=== PATIENT | female | born 1970 | race Caucasian/White ===

== ENCOUNTER 2016-05-22 15:08 | Emergency (ER) | payer MEDICAID ==
[2016-05-22 15:40] VITALS: BP 122/81; PULSE 88; RESP 16; TEMP 97.7; O2SAT 97
[2016-05-22] MEDS ORDERED: IBUPROFEN 200 MG TAB PO ONE (15:40)
--- NOTE | 2016-05-22 15:47 | UCPHY ---
H & P Time Seen by Provider: 05/22/16 15:22 Patient Type: New HPI/ROS: This patient injured her right 5th finger deflecting a branch fell from a tree while she is working in the [place] her parents yesterday. It also struck the left upper arm. She however only complains of pain at the right 5th finger which is moderate associated with circumferential swelling and pain worsens with movement. She states that extends slightly to the 5th metacarpal of the same hand. She has not had any pain medication or anti-inflammatory for her symptoms today. ROS: No numbness or tingling. She denies any head injury from the incident. No other injuries. 5 point ROS is otherwise negative. Smoking Status: Unknown if ever smoked Physical Exam: Physical Exam Vital signs are normal. General: No acute distress HEENT: Atraumatic. Eyes: Pupils equal and react to light. Extraocular motions are intact. Lungs: No respiratory distress. Cardiac: Brisk capillary refill is intact throughout. Pulses are 2+ and symmetric in the affected extremity. Skin: No rash or pallor. Extremities: Atraumatic normal except for right hand: There is circumferential swelling of the 5th finger with limited range of motion in flexion and extension due to pain. No significant malrotation. Mild tenderness to the distal 5th metacarpal on the same hand. Hand exam is otherwise normal. Left upper extremity notable for contusion to the mid humeral region laterally. No bony tenderness. She retains full range of motion of the humerus without pain Neuro: Alert and oriented x3 with no sensorimotor deficits. Initial differential diagnosis: 5th finger fracture versus sprain versus contusion, arm contusion Constitutional: Initial Vital Signs Temperature (C) 36.5 C 05/22/16 15:20 Heart Rate 88 05/22/16 15:20 Respiratory Rate 16 05/22/16 15:20 Blood Pressure 122/81 H 05/22/16 15:20 O2 Sat (%) 97 05/22/16 15:20 O2 Delivery Mode Room Air Allergies/Adverse Reactions: erythromycin base Allergy (Verified 05/22/16 15:35) metronidazole [From Flagyl] Allergy (Verified 05/22/16 15:35) Sulfa (Sulfonamide Antibiotics) Allergy (Verified 05/22/16 15:35) Home Medications: Medication Instructions Recorded NK [No Known Home Meds] 05/22/16 MDM/Departure - MDM Diagnostics: Imaging Impressions Finger X-Ray 05/22/16 15:34 Impression: No bone or joint abnormality identified. Finger x-ray: Negative for fracture by my interpretation Medications Given: Discontinued Medications Ibuprofen (Motrin) 600 mg PO EDNOW ONE Stop: 05/22/16 15:41 Last Admin: 05/22/16 16:00 Dose: 600 mg ED Course/Re-evaluation: Patient is treated with ibuprofen with partial relief. The patient requested in Alumafoam splint rather than lonnie taping initially. Provided the splint but encouraged her to changes out for lonnie taping within a few days of the finger does get too stiff. Findings are consistent with 5th finger sprain and left arm contusion. I counseled patient regarding this. - Depart Disposition: Home, Routine, Self-Care Condition: Good Instructions: Contusion in Adults (ED), Finger Sprain (ED) Additional Instructions: Diagnosis: 1. Finger sprain 2. Arm contusion Plan: Ice 20 minutes at a time to 3 times a day to sore areas Ibuprofen and Tylenol in addition Lonnie-taped 4th 5th finger until symptoms improve-likely over the next 5-10 days. Referrals: NONE *PRIMARY CARE P,. [Primary Care Provider] - As per Instructions - PQRS PQRS Measurement: NA
== END 2016-05-22 16:11 | disposition home or self-care (01) ==
LOC: CED 15:08
DX: S63.616A Unspecified sprain of right little finger, initial encounter (principal); S40.022A Contusion of left upper arm, initial encounter; W20.8XXA Other cause of strike by thrown, projected or falling object, initial encounter; Y93.H2 Activity, gardening and landscaping
CPT/HCPCS: 73140-PO; 99203-PO; G0463-PO

== ENCOUNTER 2017-04-13 16:38 | Emergency (ER) | payer MEDICAID ==
--- NOTE | 2017-04-13 16:54 | EDPHY ---
H & P Stated Complaint: just got out of longterm/cough/rx amoxicillin in longterm/also r ankle and l foot p Time Seen by Provider: 04/13/17 16:53 HPI/ROS: HPI: This is a 46-year-old female who presents with Chief Complaint: just got out of longterm/cough/rx amoxicillin in longterm/also r ankle and l foot p Location: Chest Quality: Cough Duration: 2 weeks Signs and Symptoms: no Shortness of breath, no chest pain, + wheezing, no palpitations, + subjective fevers, No bleeding, no radiation, no numbness, no weakness, no tingling, no incontinence, no decreased range of motion, + swelling , + pain Timing: Daily Severity: Moderate Context: Patient has a history of asthma diagnosed in childhood, released from longterm yesterday, presents with several complaints. She complains nonproductive cough and chest congestion for the last 2 weeks. She took 6 days of amoxicillin all last dose yesterday but was not given prescription by longterm to continue when she was discharged. She reports that she has an albuterol inhaler at home that she has been using 2-3 times per day. She denies any chest pain/shortness of breath. She reports subjective low-grade fevers and chills. She also reports that 1 week ago she jumped off a 3 ft ledge and twisted her right lateral ankle. Since that time has remained swollen with pain after weight-bearing for long periods of time. She also complains of the top of her right foot causing her pain that is described as mild and nonradiating in nature and worsened with weight-bearing. She is requesting a note while at the intermediate house to prohibit her from having to walk long periods of time until fully healed. She denies any paresthesias/erythema/ weakness/skin color changes. Nonsmoker. Modifying Factors: See above Comment: ROS: see HPI Constitutional: No fever, no chills, no weight loss Eyes: No blurred vision Respiratory: No shortness of breath, no cough Cardiovascular: No chest pain Gastrointestinal: No nausea, no vomiting no diarrhea Genitourinary: No dysuria Extremities: No myalgias Neurologic: No weakness, no numbness Skin: No rashes Hematologic: No bruising, no bleeding MEDICAL/SURGICAL/SOCIAL HISTORY: Med hx-asthma, endometriosis Surg hx-laparoscopic Social history: Unemployed. CONSTITUTIONAL: Well-appearing adult white female, awake and alert, no obvious distress HEENT: Atraumatic and normocephalic, PERRL, EOMI. Tympanic membranes clear. Oropharynx clear, no exudate and moist pink mucosa. Airway patent. No lymphadenopathy. No meningismus. Cardiovascular: Normal S1/S2, regular rate, regular rhythm, without murmur rub or gallop. PULMONARY/CHEST: Symmetrical and nontender. Coarseness bilaterally with bilateral faint expiratory wheezing. Good air movement. No accessory muscle usage. ABDOMEN: Soft, nondistended, nontender, no rebound, no guarding, no peritoneal signs, no masses or organomegaly. No CVAT. EXTREMITIES: 2/2 pulses, strength 5/5, left Ankle: Plantar flexion to 50, dorsiflexion to 20. Foot inversion to 35 degree. Mild swelling noted over the lateral malleolus. mild tenderness/swelling Anterior talofibular ligament. No tenderness/swelling Calcaneofibular ligament, no tenderness/swelling posterior talofibular ligament, no tenderness/swelling posterior inferior tibiofibular ligament. Achilles tendon intact. no deformities, no clubbing, no cyanosis or edema. NEUROLOGICAL: no focal neuro deficits. Left foot mild tenderness over the medic tarsals but no obvious deformity/swelling/ecchymosis. GCS 15. SKIN: Warm and dry, no erythema. no rash. Good capillary refill. Source: Patient Exam Limitations: No limitations - Personal History LMP (Females 10-55): Post Menopausal Current Tetanus/Diphtheria Vaccine: Yes - Medical/Surgical History Hx Asthma: Yes Hx Chronic Respiratory Disease: No Hx Diabetes: No Hx Cardiac Disease: No Hx Renal Disease: No Hx Cirrhosis: No Hx Alcoholism: No Hx HIV/AIDS: No Hx Splenectomy or Spleen Trauma: No Other PMH: Med hx-. Surg-laproscopic - Social History Smoking Status: Never smoked Constitutional: Initial Vital Signs Temperature (C) 36.9 C 04/13/17 16:42 Heart Rate 86 04/13/17 16:42 Respiratory Rate 18 04/13/17 16:42 Blood Pressure 112/93 H 04/13/17 16:42 O2 Sat (%) 97 04/13/17 16:42 O2 Delivery Mode Room Air Allergies/Adverse Reactions: erythromycin base Allergy (Verified 05/22/16 15:35) metronidazole [From Flagyl] Allergy (Verified 05/22/16 15:35) Sulfa (Sulfonamide Antibiotics) Allergy (Verified 05/22/16 15:35) Home Medications: Medication Instructions Recorded AMOXICILLIN 04/13/17 Benzonatate [Tessalon Pearles (RX)] 100 mg PO Q4 PRN #15 cap 04/13/17 Doxycycline Hyclate 100 mg PO BID #14 tab 04/13/17 Medical Decision Making Procedures: Procedure: Splint placement. An ART wrap and right ankle stirrup splint was applied by the Emergency Room traffic control technician. After application of the splint I returned and re-examined the patient. The splint was adequately immobilizing the joint and distal to the splint the patient's circulation and sensation was intact. ED Course/Re-evaluation: Chest x-ray, DuoNeb therapy, right ankle x-ray and left foot x-ray ordered. Vital signs reviewed and afebrile and no systemic signs. O2 sats 97% on room air. No signs of neurovascular compromise/tenting of skin/compartment syndrome/ extremities and joints examined above and below area of concern and are neurovascularly intact. Ankle x-ray my read shows no acute fracture; given Art wrap and placed in ankle stirrup splint. Left foot x-ray my read shows no acute fracture. Chest x-ray my read no effusion, no pneumothorax. Radiologist questions scar early infiltrate in the right midlung. Patient has a history of asthma and recent incarceration; Macrolide allergy noted. Given doxycycline. This patient was seen under the supervision of my secondary supervising physician. I evaluated care for this patient independently. Differential Diagnosis: Differential diagnosis includes but is not limited to bronchitis, upper respiratory infection, asthma exacerbation, pneumonia, sepsis. - Data Points Medications Given: Discontinued Medications Albuterol/Ipratropium (Duoneb) 3 ml IH EDNOW ONE Stop: 04/13/17 17:02 Last Admin: 04/13/17 17:08 Dose: 3 ml Departure - Departure Disposition: Home, Routine, Self-Care Clinical Impression: Asthma without acute exacerbation, Lower respiratory infection Sprain of right ankle Qualifiers: Encounter type: initial encounter Involved ligament of ankle: anterior talofibular ligament Qualified Code(s): S93.491A - Sprain of other ligament of right ankle, initial encounter Condition: Good Instructions: Ankle Sprain (ED), Acute Bronchitis (ED), Ankle Stirrup Splint ( ED) Referrals: JUDY LEBRON [Other] - As per Instructions Prescriptions: Benzonatate [Tessalon Pearles (RX)] 100 mg PO Q4 PRN #15 cap PRN Reason: Cough, Moderate Doxycycline Hyclate 100 mg PO BID #14 tab
[2017-04-13] MEDS ORDERED: IPRATROPIUM/ALBUTEROL 3 ML DEYVIAL IH ONE (17:01)
[2017-04-13 17:59] VITALS: BP 122/86; PULSE 83; RESP 16; TEMP 98.2; O2SAT 98
== END 2017-04-13 18:02 | disposition home or self-care (01) ==
DX: S93.491A Sprain of other ligament of right ankle, initial encounter (principal); J45.909 Unspecified asthma, uncomplicated; J22 Unspecified acute lower respiratory infection; X50.9XXA Other and unspecified overexertion or strenuous movements or postures, initial encounter; Y93.39 Activity, other involving climbing, rappelling and jumping off
CPT/HCPCS: L4350

== ENCOUNTER → 2018-02-03 | Outpatient (CLI) | payer OTHER ==
[~2018-02-03] MED LIST: IOPAMIDOL (ISOVUE 370) 100 ML BTL IV ONE; LIDOCAINE 1% 300 MG/30 ML SDV ONE
== END ==
LOC: FIMAGING 10:49
PROVIDERS: ATTEND Podiatrist
PROC: 3E0U3KZ Introduction of Other Diagnostic Substance into Joints, Percutaneous Approach (ICD-10-PCS; principal; 2018-02-03)
DX: M79.672 Pain in left foot (principal); S93.525D Sprain of metatarsophalangeal joint of left lesser toe(s), subsequent encounter
CPT/HCPCS: Q9967